=== PATIENT | male | born 1945 | race Caucasian/White ===

== ENCOUNTER 2018-09-22 14:53 | Emergency (ER) | payer OTHER ==
[~2018-09-22] VITALS: Ht 160 cm; Wt 59.0 kg
[~2018-09-22 14:53] MED LIST: METF-370 PO
[2018-09-22 15:48] LABS: Hematocrit 27.9 % (41.0-53.0)
[2018-09-22 15:51] LABS: Hemoglobin 9.3 g/dL (13.5-17.5); Mean Corpuscular Hemoglobin 32.2 pg (28.0-32.0); Mean Corpuscular Hgb Conc. 33.4 g/dL (32.0-36.0); Mean Corpuscular Volume 96.3 fL (80.0-100.0)
[2018-09-22 16:01] LABS: Red Cell Distribution Width 21.9 % (11.8-14.3)
[2018-09-22 16:02] LABS: Albumin 3.5 g/dL (3.4-5.0); Calcium 8.7 mg/dL (8.5-10.1)
[2018-09-22 16:03] LABS: Platelet Count (auto) 18 10^3/uL (140-450); White Blood Cell 0.5 10^3/uL (4.4-10.8)
[2018-09-22 16:04] LABS: Band Neutrophils % (manual) 0; Basophils % (manual) 0 (0.0-2.0); Blast Cells 0; Eosinophils % (manual) 0 (0-7); Metamyelocytes % 0; Myelocytes % 0; Promyelocytes % 0; Reactive Lymphocytes 0
[2018-09-22 16:07] LABS: BUN/Creatinine Ratio 11.8; Bilirubin, Total 0.5 mg/dL (0.2-1.0); Total Protein 7.6 g/dL (6.4-8.2)
[2018-09-22] MEDS ORDERED: LACTULOSE 20Gm/30ML SOLN PO PRN (18:15)
[2018-09-22] MEDS ORDERED: NITROGLYCERIN 0.4 MG SL TAB SL PRN (18:15)
[2018-09-22] MEDS ORDERED: TEMAZEPAM 15 MG CAP PO PRN (18:15)
[2018-09-22] MEDS ORDERED: traMADol HCL 50 MG TAB PO PRN (18:15)
[2018-09-22] MEDS ORDERED: LORazepam 0.5 MG TAB PO PRN (18:15)
[2018-09-22] MEDS ORDERED: MORPHINE SULFATE 4 MG/ML SYR/VIAL IV PRN ×2 (18:15)
[2018-09-22 19:20] LABS: Lymphocytes % (manual) 80 (10.0-50.0); Monocytes % (manual) 15 (0-12)
[2018-09-22 22:19] VITALS: BP 134/59
[2018-09-22 22:36] VITALS: BP 127/61
[2018-09-22 23:56] VITALS: BP 122/58
[2018-09-23] MEDS ORDERED: PANTOPRAZOLE 40 MG TAB PO SCH (10:00)
[2018-09-23] MEDS ORDERED: LEVOFLOXACIN 500 MG TAB PO SCH (10:00)
== END 2018-09-23 00:13 | disposition left against medical advice (07) ==
LOC: ER 14:53 → TELE 18:18 → UNDOADMIN 18:18 → ER 09-23 00:13
DX: D69.6 Thrombocytopenia, unspecified (principal); E11.9 Type 2 diabetes mellitus without complications; Z79.84 Long term (current) use of oral hypoglycemic drugs
CPT/HCPCS: 36415; 36430; 71045; 80053; 85007; 85027; 86850; 86900; 86901; 99284; J7030; P9035

== ENCOUNTER 2018-11-30 10:15 | Inpatient (IN) | payer OTHER | END 2018-12-02 14:55 | disposition home or self-care (01) | LOC: ER 10:15 → TELE 18:13 → TELE-CENTR 20:05 | DX: C92.00 Acute myeloblastic leukemia, not having achieved remission (principal); E44.0 Moderate protein-calorie malnutrition; D61.818 Other pancytopenia; G89.29 Other chronic pain; I50.9 Heart failure, unspecified; I11.0 Hypertensive heart disease with heart failure; E11.9 Type 2 diabetes mellitus without complications; Z79.84 Long term (current) use of oral hypoglycemic drugs; Z79.891 Long term (current) use of opiate analgesic ==

== ENCOUNTER 2019-02-13 18:57 | Inpatient (IN) | payer OTHER ==
[~2019-02-13] VITALS: Ht 160 cm; Wt 48.1 kg
[~2019-02-13 18:57] MED LIST changes: +ACYC-161 PO; +ALLO-52 PO; +AML5T PO; +FURO40TA4 PO; +GABA300C10 PO; +GLIP5TAB12 PO; +ISAV1CAP2 PO; +LEVO500T21 PO; +MORP1TAB12 PO; +ONDA-143 PO; +PANT40TA2 PO; +PERCOT PO; +POTA10TA51 PO; +TEMA30CA PO; +TRAM50TA2 PO; +VENE1TAB5 PO
[2019-02-13 19:46] LABS: Basophils # (auto) 0 uL; Basophils % (auto) 2.6 % (0.0-2.0); Eosinophils # (auto) 0 uL; Eosinophils % (auto) 0.1 % (0.0-7.0); Lymphocytes # (auto) 0.3 uL; Lymphocytes % (auto) 56.4 % (10.0-50.0); Monocytes # (auto) 0 uL; Monocytes % (auto) 4.8 % (0.0-12.0); Neutrophils # (auto) 0.2 uL; Neutrophils % (auto) 36.1 % (37.0-80.0); Red Blood Cells 2.29 10^6/uL (4.5-5.90)
[2019-02-13 19:47] LABS: Hematocrit 20.5 % (41.0-53.0); Mean Corpuscular Hemoglobin 30.8 pg (28.0-32.0); Mean Corpuscular Hgb Conc. 34.4 g/dL (32.0-36.0); Mean Corpuscular Volume 89.4 fL (80.0-100.0); Red Cell Distribution Width 15.7 % (11.8-14.3)
[2019-02-13 19:51] LABS: White Blood Cell 0.5 10^3/uL (4.4-10.8)
[2019-02-13 19:52] LABS: Platelet Count (auto) 17 10^3/uL (140-450)
[2019-02-13 20:16] LABS: Potassium 3.8 mmol/L (3.5-5.1); Sodium 134 mmol/L (136-145)
[2019-02-13 20:17] LABS: Alanine Aminotransferase 13 U/L (16-61); Alkaline Phosphatase 91 U/L (45-117); Anion Gap 7 (5-15); Aspartate Aminotransferase 13 U/L (15-37); BUN/Creatinine Ratio 15.8; Bilirubin, Total 0.9 mg/dL (0.2-1.0); Blood Urea Nitrogen 12 mg/dL (7-18); Calcium 8.3 mg/dL (8.5-10.1); Carbon Dioxide 28 mmol/L (21-32); Chloride 99 mmol/L (98-107); GFR African American 130 mL/min; GFR Non-African American 107 mL/min; Glucose 111 mg/dL (74-106); Total Protein 6.8 g/dL (6.4-8.2)
[2019-02-13] MEDS ORDERED: TEMAZEPAM 15 MG CAP PO PRN (22:00)
[2019-02-13] MEDS ORDERED: LORazepam 0.5 MG TAB PO PRN (22:00)
[2019-02-13] MEDS ORDERED: traMADol HCL 50 MG TAB PO PRN (22:00)
[2019-02-13] MEDS: GABAPENTIN 300 MG CAP PO SCH (22:00)
[2019-02-13] MEDS ORDERED: MORPHINE SULF INJ 2 MG/ML SYRINGE 1ML IV PRN (22:00)
[2019-02-13] MEDS ORDERED: ONDANSETRON HCL 4 MG/2 ML VIAL IV PRN (22:00)
[2019-02-13] MEDS ORDERED: IPRATROPIUM BROM 0.5 MG/2.5ML INH SOL NEB PRN (22:15)
[2019-02-13] MEDS ORDERED: ALBUTEROL SULF 2.5 MG/0.5ML(0.5%) NEB SOLN NEB PRN (22:15)
[2019-02-13] MEDS ORDERED: HYDROcodone-ACET 5/325MG TAB PO PRN (22:30)
[2019-02-13 23:04] VITALS: BP 97/47
[2019-02-13 23:11] LABS: Urine Bacteria NONE SEEN /hpf (None Seen); Urine Blood Negative /uL (Negative); Urine Mucus FEW (None Seen); Urine Specific Gravity 1.013 (1.001-1.035); Urine WBC <1 /hpf (0 - 3)
[2019-02-13 23:19] VITALS: BP 100/49
[2019-02-13 23:30] VITALS: BP 103/52
[2019-02-14] VITALS (13 sets, daily range): BP systolic 97–117; BP diastolic 49–58
--- NOTE | 2019-02-14 | NUR ---
MS admit from ER ESTEBAN ELIAS admitted to tele/MS after SBAR received. Patient oriented to Clemencia Cosme, primary RN, unit, room, bed, and unit policies regarding patient care and visiting hours. Patient weighed by bed scale and encouraged to call if they need something. All questions and concerns addressed, patient verbalized understanding.
--- NOTE | 2019-02-14 01:10 | NUR ---
FIRST UNIT OF PRBC ENDED NO S/S OF TRANSFUSION REACTION NOTED. PATIENT DENIES SYMPTOMS. VITALS STABLE, SEE TRANSFUSION RECORD.
--- NOTE | 2019-02-14 01:40 | NUR ---
FIRST UNIT OF PLATELETS STARTED SEE TRANSFUSION RECORD.
[2019-02-14] MEDS ORDERED: FURO20TA3 PO (02:00)
[2019-02-14] MEDS ORDERED: GABA300C10 PO (02:00)
[2019-02-14] MEDS ORDERED: ISAV1CAP2 PO (02:00)
[2019-02-14] MEDS ORDERED: ONDA-143 PO (02:00)
--- NOTE | 2019-02-14 03:09 | NUR ---
FIRST UNIT OF PLATELETS ENDED NO S/S OF TRANSFUSION REACTION NOTED. PATIENT DENIES SYMPTOMS. VITALS STABLE, SEE TRANSFUSION RECORD.
--- NOTE | 2019-02-14 03:17 | NUR ---
HOSPITALIST PAGED PATIENT REQUESTING HOME PAIN MEDICATION PERCOCET
--- NOTE | 2019-02-14 03:18 | NUR ---
HOSPITALIST RETURNS CALL HOSPITALIST MERNA RETURNS CALL, NEW ORDERS RECEIVED READ BACK AND VERIFIED.
[2019-02-14] MEDS ORDERED: OXYCODONE W/ ACETAMINOPHEN 5/325MG TABLET PO PRN (03:30)
--- NOTE | 2019-02-14 04:05 | NUR ---
PATIENT STATES HE DOES NOT HAVE AN ALLERGY TO NORCO(HYDROCODONE), PATIENT STATES HE TOOK IT AND IT CAUSED NAUSEA. PATIENT STATES HE HAS NAUSEA WHEN HE TAKES NORCO AND MORPHINE. HE DENIES REACTION TO PERCOCET AND STATES IT DOES NOT CAUSE HIM NAUSEA LIKE THE NORCO AND MORPHINE. REMOVED HYDROCODONE ALLERGY FROM PATIENTS CHART PER REQUEST.
--- NOTE | 2019-02-14 04:37 | NUR ---
SECOND UNIT OF PRBC'S STARTED SEE TRANSFUSION RECORD.
--- NOTE | 2019-02-14 06:14 | NUR ---
Respiratory note: PT AWAKE AND ALERT. NO RESPIRATORY DISTRESS NOTED. SPO2 94% RA, HR 101, RR 18, BS CLEAR T/O. PRN TX NOT INDICATED AT THIS TIME. INFORMED PT TO PUSH CALL BUTTON IF INCREASED WOB, SOB, OR WHEEZING OCCURS.
--- NOTE | 2019-02-14 06:40 | NUR ---
SECOND UNIT OF PRBC ENDED NO S/S OF TRANSFUSION REACTION NOTED. PATIENT DENIES SYMPTOMS. VITALS STABLE, SEE TRANSFUSION RECORD.
[2019-02-14] MEDS: GABAPENTIN 300 MG CAP PO SCH ×2 (06:41→14:23)
[2019-02-14] MEDS ORDERED: glipiZIDE 5 MG TAB PO SCH (07:00)
[2019-02-14] MEDS ORDERED: FUROSEMIDE 20 MG TAB PO SCH (10:00)
[2019-02-14] MEDS ORDERED: ACYCLOVIR 400 MG TAB PO SCH (10:00)
[2019-02-14] MEDS ORDERED: PANTOPRAZOLE 40 MG TAB PO SCH (10:00)
[2019-02-14] MEDS ORDERED: LEVOFLOXACIN 500 MG TAB PO SCH (10:00)
[2019-02-14] MEDS ORDERED: amLODIPine BESYLATE 5 MG TAB PO SCH (10:00)
[2019-02-14] MEDS ORDERED: CRESEMBA 186 MG PO SCH (10:00)
[2019-02-14 10:46] LABS: Hemoglobin 10.2 g/dL (13.5-17.5); Red Cell Distribution Width 15.3 % (11.8-14.3)
[2019-02-14 10:48] LABS: Hematocrit 29.4 % (41.0-53.0); Mean Corpuscular Hemoglobin 31.2 pg (28.0-32.0); Mean Corpuscular Hgb Conc. 34.7 g/dL (32.0-36.0); Mean Corpuscular Volume 89.9 fL (80.0-100.0); Platelet Count (auto) 49 10^3/uL (140-450); Red Blood Cells 3.27 10^6/uL (4.5-5.90)
[2019-02-14] MEDS ORDERED: DEXTROSE (50%) 50ML SYRG IV PRN (11:15)
[2019-02-14 11:30] LABS: White Blood Cell 0.4 10^3/uL (4.4-10.8)
[2019-02-14] MEDS ORDERED: ACCU-CHEK COMFORT CURVE STRIP VI SCH (11:30)
[2019-02-14] MEDS ORDERED: InsuLIN REG 1unit/0.01ml Soln (100units/ml) SC SCH (11:30)
[2019-02-14 11:31] LABS: Band Neutrophils % (manual) 0; Basophils % (manual) 0 (0.0-2.0); Blast Cells 0; Metamyelocytes % 0; Myelocytes % 0; Promyelocytes % 0; Reactive Lymphocytes 0
[2019-02-14 15:04] LABS: Eosinophils % (manual) 1 (0-7); Lymphocytes % (manual) 64 (10.0-50.0); Monocytes % (manual) 9 (0-12)
--- NOTE | 2019-02-14 15:12 | NUR ---
Discharge instructions given as ordered. Encourage to follow up with PMD as instructed. All questions and concerns addressed. Patient verbalized understanding. Medication reconciliation form completed and copy given to patient. IV removed with catheter intact, pressure dressing applied . Patient taken to [facility] via wheelchair with all personal belongings, accompanied by staff member. No distress noted at time of departure.
== END 2019-02-14 15:15 | disposition home or self-care (01) | DRG 949 ==
LOC: EDBD 18:57 → EDUNIT# 18:57 → ER 19:00 → OVERFLOW 19:01 → CENTRAL 23:45
PROVIDERS: ADMIT Nurse Practitioner Family; ATTEND Internal Medicine
PROC: 30233N1 Transfusion of Nonautologous Red Blood Cells into Peripheral Vein, Percutaneous Approach (ICD-10-PCS; 2019-02-13)
PROC: 30233R1 Transfusion of Nonautologous Platelets into Peripheral Vein, Percutaneous Approach (ICD-10-PCS; principal; 2019-02-14)
DX: Z92.21 Personal history of antineoplastic chemotherapy (principal); D61.818 Other pancytopenia; C92.00 Acute myeloblastic leukemia, not having achieved remission; I50.32 Chronic diastolic (congestive) heart failure; E11.9 Type 2 diabetes mellitus without complications; I11.0 Hypertensive heart disease with heart failure; G89.29 Other chronic pain; J44.9 Chronic obstructive pulmonary disease, unspecified; K21.9 Gastro-esophageal reflux disease without esophagitis; M54.5 Low back pain; Z81.8 Family history of other mental and behavioral disorders; Z82.5 Family history of asthma and other chronic lower respiratory diseases; Z80.8 Family history of malignant neoplasm of other organs or systems; Z79.84 Long term (current) use of oral hypoglycemic drugs; Z79.899 Other long term (current) drug therapy; Z80.0 Family history of malignant neoplasm of digestive organs; Z90.89 Acquired absence of other organs
CPT/HCPCS: 36415; 36430; 71045; 80053; 81001; 82962; 85007; 85025; 85027; 86850; 86900; 86901; 86920; 87081; 94640; G0378

== ENCOUNTER 2019-03-13 21:48 | Emergency (ER) | payer OTHER ==
[~2019-03-13] VITALS: Ht 160 cm; Wt 45.4 kg
[~2019-03-13 21:48] MED LIST changes: +FURO20TA3 PO; -FURO40TA4 PO; -METF-370 PO; -MORP1TAB12 PO; -VENE1TAB5 PO
[2019-03-13 22:47] LABS: Basophils # (auto) 0 uL; Eosinophils # (auto) 0 uL; Monocytes # (auto) 0 uL
[2019-03-13 22:49] LABS: Basophils % (auto) 0.5 % (0.0-2.0); Eosinophils % (auto) 0.7 % (0.0-7.0); Hematocrit 16.7 % (41.0-53.0); Lymphocytes # (auto) 0.4 uL; Lymphocytes % (auto) 54.2 % (10.0-50.0); Mean Corpuscular Hemoglobin 31.4 pg (28.0-32.0); Mean Corpuscular Hgb Conc. 34.4 g/dL (32.0-36.0); Mean Corpuscular Volume 91.5 fL (80.0-100.0); Monocytes % (auto) 5.2 % (0.0-12.0); Neutrophils # (auto) 0.3 uL; Neutrophils % (auto) 39.4 % (37.0-80.0); Red Blood Cells 1.83 10^6/uL (4.5-5.90); Red Cell Distribution Width 17.8 % (11.8-14.3)
[2019-03-13 22:50] LABS: Alanine Aminotransferase 12 U/L (16-61); Albumin 2.7 g/dL (3.4-5.0); Anion Gap 7 (5-15); Aspartate Aminotransferase 11 U/L (15-37); BUN/Creatinine Ratio 13.7; Blood Urea Nitrogen 10 mg/dL (7-18); Calcium 8.1 mg/dL (8.5-10.1); Carbon Dioxide 30 mmol/L (21-32); Chloride 98 mmol/L (98-107); GFR African American 136 mL/min; GFR Non-African American 113 mL/min; Glucose 111 mg/dL (74-106); Magnesium 2.2 mg/dL (1.6-2.6); Potassium 4.1 mmol/L (3.5-5.1); Sodium 135 mmol/L (136-145)
[2019-03-13 22:52] LABS: Nucleated Red Blood Cells % 24.4 %
[2019-03-13 22:55] LABS: Alkaline Phosphatase 75 U/L (45-117); Bilirubin, Total 0.7 mg/dL (0.2-1.0)
[2019-03-13 22:58] LABS: INR 1.06 (0.9-1.15); Partial Thromboplastin Time 33.3 sec (23.64-32.05); Platelet Count (auto) 19 10^3/uL (140-450)
[2019-03-13 22:59] LABS: Hemoglobin 5.7 g/dL (13.5-17.5); White Blood Cell 0.8 10^3/uL (4.4-10.8)
[2019-03-13 23:21] LABS: Urine Bacteria FEW /hpf (None Seen); Urine Blood Negative /uL (Negative); Urine Hyaline Cast FEW /lpf (0 - 2); Urine Mucus FEW (None Seen); Urine Specific Gravity 1.009 (1.001-1.035); Urine WBC <1 /hpf (0 - 3)
[2019-03-14 02:15] VITALS: BP 98/49
[2019-03-14 02:30] VITALS: BP 99/48
[2019-03-14 03:00] VITALS: BP 106/50
[2019-03-14] MEDS ORDERED: OXYCODONE W/ ACETAMINOPHEN 5/325MG TABLET PO ONE (03:15)
[2019-03-14] MEDS ORDERED: traMADol HCL 50 MG TAB PO PRN (09:00)
[2019-03-14] MEDS ORDERED: ONDANSETRON HCL 4 MG/2 ML VIAL IV PRN (09:00)
[2019-03-14] MEDS ORDERED: HYDROcodone-ACET 5/325MG TAB PO PRN (09:00)
[2019-03-14] MEDS ORDERED: ACETAMINOPHEN 500 MG TAB PO PRN (09:00)
[2019-03-14] MEDS ORDERED: MORPHINE SULF INJ 2 MG/ML SYRINGE 1ML IV PRN ×2 (09:00)
[2019-03-14] MEDS ORDERED: NITROGLYCERIN 0.4 MG SL TAB SL PRN (09:00)
[2019-03-14 09:23] VITALS: BP 98/45
[2019-03-14 09:35] LABS: Basophils # (auto) 0 uL; Eosinophils # (auto) 0 uL; Lymphocytes # (auto) 0.4 uL; Mean Corpuscular Hemoglobin 30.8 pg (28.0-32.0); Mean Corpuscular Volume 88.9 fL (80.0-100.0); Monocytes # (auto) 0 uL
[2019-03-14 09:37] LABS: Basophils % (auto) 2.2 % (0.0-2.0); Eosinophils % (auto) 3.8 % (0.0-7.0); Hemoglobin 10.4 g/dL (13.5-17.5); Lymphocytes % (auto) 53.8 % (10.0-50.0); Mean Corpuscular Hgb Conc. 34.6 g/dL (32.0-36.0); Monocytes % (auto) 3.1 % (0.0-12.0); Neutrophils # (auto) 0.3 uL; Neutrophils % (auto) 37.1 % (37.0-80.0); Platelet Count (auto) 63 10^3/uL (140-450); Red Blood Cells 3.38 10^6/uL (4.5-5.90); Red Cell Distribution Width 17.8 % (11.8-14.3)
[2019-03-14 09:57] LABS: Nucleated Red Blood Cells % 20.8 %
[2019-03-14 09:59] LABS: White Blood Cell 0.8 10^3/uL (4.4-10.8)
[2019-03-14] MEDS ORDERED: PANTOPRAZOLE 40 MG TAB PO SCH (10:00)
[2019-03-14] MEDS ORDERED: amLODIPine BESYLATE 5 MG TAB PO SCH (10:00)
[2019-03-14] MEDS ORDERED: ALLOPURINOL 300 MG TAB PO SCH (10:00)
[2019-03-14] MEDS ORDERED: FUROSEMIDE 20 MG TAB PO SCH (10:00)
[2019-03-14] MEDS ORDERED: GABAPENTIN 300 MG CAP PO SCH (22:00)
== END 2019-03-14 09:41 | disposition home or self-care (01) ==
LOC: ER 21:49
DX: D64.81 Anemia due to antineoplastic chemotherapy (principal); D69.6 Thrombocytopenia, unspecified; D72.819 Decreased white blood cell count, unspecified; T45.1X5A Adverse effect of antineoplastic and immunosuppressive drugs, initial encounter; E11.9 Type 2 diabetes mellitus without complications; I11.0 Hypertensive heart disease with heart failure; I50.9 Heart failure, unspecified; Z79.84 Long term (current) use of oral hypoglycemic drugs; Z79.899 Other long term (current) drug therapy; Y92.89 Other specified places as the place of occurrence of the external cause
CPT/HCPCS: 36415; 36430; 80053; 81001; 83735; 84484; 85025; 85610; 85730; 86850; 86900; 86901; 86920; 93005; 99285; P9016; P9035

== ENCOUNTER 2019-03-29 15:29 | Inpatient (IN) | payer OTHER | END 2019-03-31 14:30 | disposition home or self-care (01) | LOC: EAST 23:32 → ER 15:29 → OVERFLOW 15:30 → EAST 23:22 | DX: C92.00 Acute myeloblastic leukemia, not having achieved remission (principal); E43 Unspecified severe protein-calorie malnutrition; D61.818 Other pancytopenia; R64 Cachexia; I10 Essential (primary) hypertension; I70.0 Atherosclerosis of aorta; Z92.21 Personal history of antineoplastic chemotherapy; D69.6 Thrombocytopenia, unspecified; E11.8 Type 2 diabetes mellitus with unspecified complications ==

== ENCOUNTER 2019-04-28 11:16 | Inpatient (IN) | payer OTHER ==
[~2019-04-28] VITALS: Ht 172.7 cm; Wt 50.0 kg
[~2019-04-28 11:16] MED LIST changes: -LEVO500T21 PO; -POTA10TA51 PO
[2019-04-28] MEDS ORDERED: SODIUM CHLORIDE 0.9% 1,000 ML IV ONE (11:44)
[2019-04-28 12:45] LABS: Basophils # (auto) 0 uL; Eosinophils # (auto) 0 uL; Lymphocytes # (auto) 0.2 uL; Monocytes # (auto) 0 uL; Neutrophils # (auto) 0.1 uL
[2019-04-28 12:50] LABS: Eosinophils % (auto) 0.6 % (0.0-7.0); Lymphocytes % (auto) 54.8 % (10.0-50.0); Mean Corpuscular Hgb Conc. 32.9 g/dL (32.0-36.0); Mean Corpuscular Volume 94.3 fL (80.0-100.0); Monocytes % (auto) 11.9 % (0.0-12.0); Neutrophils % (auto) 32.7 % (37.0-80.0); Red Blood Cells 2.01 10^6/uL (4.5-5.90)
[2019-04-28 13:03] LABS: Nucleated Red Blood Cells % 29.5 %
[2019-04-28 13:04] LABS: Hemoglobin 6.2 g/dL (13.5-17.5); Platelet Count (auto) 18 10^3/uL (140-450); Red Cell Distribution Width 25.4 % (11.8-14.3); White Blood Cell 0.3 10^3/uL (4.4-10.8)
[2019-04-28 13:06] LABS: INR 1.11 (0.9-1.15); Partial Thromboplastin Time 35.3 sec (23.64-32.05)
[2019-04-28 13:11] LABS: Albumin 2.7 g/dL (3.4-5.0); Anion Gap 9 (5-15); Aspartate Aminotransferase 25 U/L (15-37); BUN/Creatinine Ratio 28.3; Blood Urea Nitrogen 17 mg/dL (7-18); Calcium 8.4 mg/dL (8.5-10.1); Carbon Dioxide 28 mmol/L (21-32); Chloride 98 mmol/L (98-107); GFR African American 171 mL/min; GFR Non-African American 141 mL/min; Glucose 113 mg/dL (74-106); Potassium 3.8 mmol/L (3.5-5.1); Sodium 135 mmol/L (136-145)
[2019-04-28 13:16] LABS: Alanine Aminotransferase 21 U/L (16-61); Alkaline Phosphatase 69 U/L (45-117); Bilirubin, Total 1.2 mg/dL (0.2-1.0); Total Protein 6.4 g/dL (6.4-8.2)
[2019-04-28] MEDS ORDERED: DEXTROSE (50%) 50ML SYRG IV PRN (13:30)
[2019-04-28] MEDS ORDERED: NITROGLYCERIN 0.4 MG SL TAB SL PRN (13:30)
[2019-04-28] MEDS ORDERED: MORPHINE SULF INJ 2 MG/ML SYRINGE 1ML IV PRN (13:30)
[2019-04-28] MEDS ORDERED: PROMETHAZINE HCL 25 MG/ML 1ML IV PRN (13:30)
[2019-04-28] MEDS ORDERED: LACTULOSE 20Gm/30ML SOLN PO PRN (13:30)
[2019-04-28] MEDS ORDERED: ACETAMINOPHEN 500 MG TAB PO PRN (13:30)
[2019-04-28] MEDS ORDERED: traMADol HCL 50 MG TAB PO PRN (13:30)
[2019-04-28] MEDS ORDERED: TEMAZEPAM 15 MG CAP PO PRN (13:30)
[2019-04-28] MEDS: SODIUM CHLORIDE 0.9% 1,000 ML IV SCH (13:53)
--- NOTE | 2019-04-28 14:00 | NUR ---
PT TRANSPORTED FROM ER. RECEIVED REPORT FROM ER NURSE. PT AWAKE AND ALERT. PT RUNNING PLATELETS AT 120 ML PER HOUR. NO SOB OR SIGNS OF DISTRESS NOTED. INSTRUCTED PT ON POC. BED AT LOWEST POSITION. SIDE RAILS UP X2. WILL CONTINUE TO MONITOR.
[2019-04-28 14:59] VITALS: BP 104/51
[2019-04-28 15:17] VITALS: BP 108/52
[2019-04-28 16:26] VITALS: BP 117/56
--- NOTE | 2019-04-28 19:30 | NUR ---
Opening Shift Note Assumed care of patient, awake and alert. Henderson sandwich, jello and juice at bedside. PICC line to PATITO double lumen patent and infusing platelets. Verbalized being upset this week over his sister passing away. Using urinal. Jaymie colored urine. Continues to feel weak. Verbalized he would call if he wanted to get up for any reason. No S/S of distress/SOB. Instructed on POC and to call for assist PRN, will continue to monitor for changes Q1hr and PRN. Bed low and call light within reach.
--- NOTE | 2019-04-28 21:45 | NUR ---
Started blood transfusion @ 60 mls/hr. Closely monitoring for any adverse reactions. Vitals stable, afebrile. Infusion running through NADINE PIC line.
[2019-04-28 21:51] VITALS: BP 106/46
--- NOTE | 2019-04-28 21:57 | NUR ---
Paged hospitalist: Patient here for generalized weakness, receiving blood transfusion at this time. Also on chemo for leukemia. Patient takes percocet q6 for pain. Only has tramadol ordered at this time. He is also a type II diabetic on glipizide at home with no accuchecks ordered.
[2019-04-28 22:05] VITALS: BP 101/51
--- NOTE | 2019-04-28 22:30 | NUR ---
Paged hospitalist again. Patient pain 8/10 to back mainly. Requesting his percocet that he takes at home.Awaiting return call/orders
[2019-04-28 23:45] VITALS: BP 107/51
[2019-04-28] MEDS: OXYCODONE W/ ACETAMINOPHEN 5/325MG TABLET PO PRN (23:53)
[2019-04-29] VITALS (11 sets, daily range): BP systolic 100–115; BP diastolic 51–64
[2019-04-29 00:36] LABS: Urine Bacteria NONE SEEN /hpf (None Seen); Urine Blood Negative /uL (Negative); Urine Specific Gravity 1.018 (1.001-1.035); Urine WBC 1 /hpf (0 - 3)
[2019-04-29] MEDS: SODIUM CHLORIDE 0.9% 1,000 ML IV SCH ×2 (01:59→15:24)
--- NOTE | 2019-04-29 04:35 | NUR ---
PRBC's #2 finished. No adverse reactions noted. Flushed PICC line with 10 mls NS. Vitals stable. Fluids infusing per orders. Patient resting at this time. Call light within reach
[2019-04-29] MEDS: OXYCODONE W/ ACETAMINOPHEN 5/325MG TABLET PO PRN ×3 (06:59→21:21)
[2019-04-29 07:11] LABS: Hematocrit 21.6 % (41.0-53.0); Hemoglobin 7.4 g/dL (13.5-17.5); Mean Corpuscular Hemoglobin 30.4 pg (28.0-32.0); Mean Corpuscular Hgb Conc. 34.2 g/dL (32.0-36.0); Mean Corpuscular Volume 88.8 fL (80.0-100.0); Platelet Count (auto) 38 10^3/uL (140-450); Red Blood Cells 2.43 10^6/uL (4.5-5.90)
[2019-04-29 07:24] LABS: Red Cell Distribution Width 21.8 % (11.8-14.3)
[2019-04-29] MEDS: glipiZIDE 5 MG TAB PO SCH (07:29)
[2019-04-29 07:34] LABS: White Blood Cell 0.3 10^3/uL (4.4-10.8)
[2019-04-29 07:35] LABS: Basophils % (manual) 0 (0.0-2.0); Blast Cells 0; Eosinophils % (manual) 0 (0-7); Metamyelocytes % 0; Myelocytes % 0; Promyelocytes % 0; Reactive Lymphocytes 0
[2019-04-29 08:18] LABS: Lymphocytes % (manual) 56 (10.0-50.0); Monocytes % (manual) 13 (0-12)
[2019-04-29 08:33] LABS: Band Neutrophils % (manual) 0
[2019-04-29] MEDS: PANTOPRAZOLE 40 MG TAB PO SCH (10:02)
[2019-04-29] MEDS ORDERED: cefTRIAXone 1GM/50ML D5W 50 ML IV ONE (12:00)
[2019-04-29] MEDS ORDERED: VANCOMYCIN PER PHARMACY 0 MG IV SCH (12:00)
[2019-04-29] MEDS ORDERED: VANCOMYCIN 1GM/250ML 250 ML IV ONE (13:00)
--- NOTE | 2019-04-29 20:00 | NUR ---
Opening Shift Note Assumed care of patient, awake and alert x4. No S/S of distress/SOB or pain. Instructed on POC and to call for assistance PRN, will continue to monitor for changes Q1hr and PRN. Patient on reverse iso
--- NOTE | 2019-04-29 22:21 | NUR ---
Pain Management Pt medicated for chronic back pain 02/01, will monitor for relief
[2019-04-30 05:00] VITALS: BP 119/71
[2019-04-30] MEDS: OXYCODONE W/ ACETAMINOPHEN 5/325MG TABLET PO PRN ×3 (06:34→18:12)
[2019-04-30] MEDS: glipiZIDE 5 MG TAB PO SCH (06:37)
--- NOTE | 2019-04-30 06:40 | NUR ---
Pain Management Pt medicated for chronic back pain. IV fluids running NS at 80 ml/hr, per pt lab to return to deliver supplies for am labs
[2019-04-30] MEDS: SODIUM CHLORIDE 0.9% 1,000 ML IV SCH ×2 (06:42→16:54)
--- NOTE | 2019-04-30 07:10 | NUR ---
Endorsed care to Geovanna GANNON
--- NOTE | 2019-04-30 07:30 | NUR ---
Opening Shift Note Assumed care of patient, awake and alert. No S/S of distress/SOB or pain on 2 LPM via nasal cannula. Instructed on POC and to call for assist PRN, will continue to monitor for changes Q1hr and PRN. Bed in low and locked position, rails up x2, no-slip socks on. Reverse isolation precautions in place.
[2019-04-30 08:20] LABS: Basophils # (auto) 0 uL; Eosinophils # (auto) 0 uL; Hemoglobin 7.9 g/dL (13.5-17.5); Neutrophils # (auto) 0.1 uL
[2019-04-30 08:21] LABS: Eosinophils % (auto) 3.8 % (0.0-7.0); Hematocrit 23.5 % (41.0-53.0); Lymphocytes # (auto) 0.3 uL; Mean Corpuscular Hemoglobin 29.7 pg (28.0-32.0); Mean Corpuscular Hgb Conc. 33.6 g/dL (32.0-36.0); Mean Corpuscular Volume 88.2 fL (80.0-100.0); Monocytes # (auto) 0 uL; Monocytes % (auto) 11.8 % (0.0-12.0); Neutrophils % (auto) 16.8 % (37.0-80.0); Platelet Count (auto) 22 10^3/uL (140-450); Red Blood Cells 2.66 10^6/uL (4.5-5.90)
[2019-04-30 08:24] LABS: Nucleated Red Blood Cells % 36.1 %; Red Cell Distribution Width 21.9 % (11.8-14.3)
[2019-04-30 08:28] LABS: Lymphocytes % (auto) 67.6 % (10.0-50.0); White Blood Cell 0.4 10^3/uL (4.4-10.8)
--- NOTE | 2019-04-30 08:28 | NUR ---
CRITICAL LAB SPOKE TO DARRION, PATIENT WBC 0.4 AND PLATELETS 22, WILL NOTIFY MD OF RESULTS.
[2019-04-30 08:41] LABS: Albumin 2.2 g/dL (3.4-5.0); Calcium 7.9 mg/dL (8.5-10.1); Potassium 3.5 mmol/L (3.5-5.1)
[2019-04-30 08:45] LABS: BUN/Creatinine Ratio 23.1; Bilirubin, Total 0.8 mg/dL (0.2-1.0); Total Protein 5.4 g/dL (6.4-8.2)
[2019-04-30 08:48] VITALS: BP 113/68
--- NOTE | 2019-04-30 09:00 | NUR ---
DR Clarice QUIÑONES AT BEDSIDE NO NEW ORDERS, AWAITING DR SANCHEZ CONSULT, HGB STABLE TODAY, WILL CONTINUE TO MONITOR. PATIENT STATED HE USES [facility].
[2019-04-30] MEDS: PANTOPRAZOLE 40 MG TAB PO SCH (09:33)
[2019-04-30] MEDS: cefTRIAXone 1GM/50ML D5W 50 ML IV SCH (09:33)
[2019-04-30] MEDS: VANCOMYCIN 1GM/250ML 250 ML IV SCH (12:31)
[2019-04-30 13:00] VITALS: BP 113/60
[2019-04-30 16:55] VITALS: BP 111/58
--- NOTE | 2019-04-30 18:14 | NUR ---
DR LAURA LEWIS STATED HE SAW THE PATIENT ON WEDNESDAY OR WEDNESDAY AND THAT THE CONSULT SHOULD HAVE BEEN CANCELLED, HE WAS UNDER THE IMPRESSION THAT THE PATIENT WOULD BE GETTING A BLOOD TRANSFUSION THEN DISCHARGED, INFORMED OF POSITIVE BLOOD CULTURES REQUIRING IV ANTIBIOTICS, ABHISHEK, STATED THAT THERE IS NOTHING TO BE DONE FROM A HEMATOLOGY, ONCOLOGY STANDPOINT AND CONTINUE THE IV ANTIBIOTICS NEEDED.
[2019-04-30 22:19] VITALS: BP 115/49
[2019-05-01] VITALS (13 sets, daily range): BP systolic 102–130; BP diastolic 52–66
[2019-05-01] MEDS: OXYCODONE W/ ACETAMINOPHEN 5/325MG TABLET PO PRN ×4 (00:30→19:03)
[2019-05-01] MEDS: SODIUM CHLORIDE 0.9% 1,000 ML IV SCH ×2 (04:28→18:51)
[2019-05-01] MEDS: glipiZIDE 5 MG TAB PO SCH (06:57)
[2019-05-01 07:13] LABS: Basophils # (auto) 0 uL; Eosinophils # (auto) 0 uL; Hemoglobin 7.7 g/dL (13.5-17.5); Mean Corpuscular Volume 88.4 fL (80.0-100.0); Monocytes # (auto) 0 uL; Neutrophils # (auto) 0.1 uL
[2019-05-01 07:14] LABS: Eosinophils % (auto) 2.2 % (0.0-7.0); Lymphocytes # (auto) 0.2 uL; Mean Corpuscular Hemoglobin 29.7 pg (28.0-32.0); Mean Corpuscular Hgb Conc. 33.6 g/dL (32.0-36.0); Monocytes % (auto) 9.1 % (0.0-12.0)
[2019-05-01 07:18] LABS: Lymphocytes % (auto) 58.7 % (10.0-50.0); Nucleated Red Blood Cells % 26.4 %; Red Cell Distribution Width 22.9 % (11.8-14.3)
[2019-05-01 07:20] LABS: Platelet Count (auto) 19 10^3/uL (140-450); White Blood Cell 0.4 10^3/uL (4.4-10.8)
[2019-05-01 07:24] LABS: Albumin 2.2 g/dL (3.4-5.0); BUN/Creatinine Ratio 15.8; Calcium 7.8 mg/dL (8.5-10.1); Potassium 3.3 mmol/L (3.5-5.1)
--- NOTE | 2019-05-01 07:25 | NUR ---
Critical Lab WBC at 0.4 and Platelet at 19. Will endorse to day shift RN.
[2019-05-01 07:26] LABS: Bilirubin, Total 0.6 mg/dL (0.2-1.0); Total Protein 5.4 g/dL (6.4-8.2)
--- NOTE | 2019-05-01 07:30 | NUR ---
Open Shift Note Received report on patient, awake and sitting on side of bed. Patient shows no signs of distress at this time. Discussed POC with patient, patient verbalized understanding. Bed in lowest locked position, side rails up x2 and call light within reach. Will continue to monitor.
[2019-05-01] MEDS: cefTRIAXone 1GM/50ML D5W 50 ML IV SCH (08:58)
[2019-05-01] MEDS ORDERED: IOHEXOL 300 MG/ML 100ML BOTTLE IJ ONE (09:50)
[2019-05-01] MEDS ORDERED: OMNIPAQUE ORAL SOLN 500ml 12mg/ml PO ONE (09:50)
[2019-05-01] MEDS ORDERED: POTASSIUM CHL 20 Meq TABLET PO ONE (10:45)
[2019-05-01] MEDS: VANCOMYCIN 1GM/250ML 250 ML IV SCH (10:53)
[2019-05-01] MEDS: PANTOPRAZOLE 40 MG TAB PO SCH (10:54)
--- NOTE | 2019-05-01 12:33 | NUR ---
Platelets To Be Delivered Later Today Spoke with blood bank who stated the platelets will not be delivered until later today because they have to bring them from [facility]. Verbalized understanding.
--- NOTE | 2019-05-01 14:46 | NUR ---
NUTRITION ASSESSMENT NOTES Please refer to link notes of nutrition screen form filed under the intervention section of the plan of care for further details. Est. Needs based on IBW (70 kg): 1750 kcal to 2250 kcal (25-30 kcal/kgIBW), 70 gms to 98 gms pro (1.0-1.4 gms/kgBW d/t severe hypoalbuminemia). Will continue to monitor pertinent labs and reassess nutrient need prn Thank you. Addendum: 05/01/19 at [address] Amended: Links added.
--- NOTE | 2019-05-01 18:51 | NUR ---
Closing Note Patient sitting up in bed, receiving platelet transfusion. Shows no signs of distress at this time. Bed in lowest locked position, side rails up x2 and call light within reach.
--- NOTE | 2019-05-01 19:18 | NUR ---
Opening Shift Note Assumed care of patient, awake and alert. Patient currently receiving Platelet transfusion. Vital signs WNL. No S/S of distress/SOB or pain or any adverse reaction. Instructed on POC and to call for assist PRN, will continue to monitor for changes Q1hr and PRN. Side rails up x2. Bed locked in locked in lowest position. Call light within reach.
--- NOTE | 2019-05-01 22:46 | NUR ---
Platelet transfusion finished. No adverse reaction noted. Vital signs within normal limits (see vital signs tab).
[2019-05-02] MEDS: OXYCODONE W/ ACETAMINOPHEN 5/325MG TABLET PO PRN ×4 (02:03→21:01)
[2019-05-02 05:12] VITALS: BP 126/52
--- NOTE | 2019-05-02 06:16 | NUR ---
PICC line dressing changed with sterile technique. Changed and flushed ports. Patient tolerated well.
[2019-05-02] MEDS: glipiZIDE 5 MG TAB PO SCH (06:48)
[2019-05-02] MEDS: SODIUM CHLORIDE 0.9% 1,000 ML IV SCH ×2 (06:48→22:31)
[2019-05-02 07:05] LABS: Basophils # (auto) 0 uL; Eosinophils # (auto) 0 uL; Hemoglobin 8.5 g/dL (13.5-17.5); Mean Corpuscular Hemoglobin 29.7 pg (28.0-32.0); Mean Corpuscular Volume 87.8 fL (80.0-100.0); Neutrophils # (auto) 0.1 uL; Red Blood Cells 2.85 10^6/uL (4.5-5.90)
[2019-05-02 07:07] LABS: Eosinophils % (auto) 1.3 % (0.0-7.0); Lymphocytes # (auto) 0.3 uL; Mean Corpuscular Hgb Conc. 33.8 g/dL (32.0-36.0); Monocytes # (auto) 0 uL; Monocytes % (auto) 9.2 % (0.0-12.0); Platelet Count (auto) 36 10^3/uL (140-450)
[2019-05-02 07:18] LABS: Lymphocytes % (auto) 69.5 % (10.0-50.0); Nucleated Red Blood Cells % 14.2 %; Red Cell Distribution Width 20.7 % (11.8-14.3)
[2019-05-02 07:19] LABS: White Blood Cell 0.5 10^3/uL (4.4-10.8)
--- NOTE | 2019-05-02 07:25 | NUR ---
Endorsed care to day shift RN.
--- NOTE | 2019-05-02 07:25 | NUR ---
Open Shift Note Received report on patient, awake and lying in bed. Patient shows no signs of distress at this time. Discussed POC with patient. Bed in lowest locked position, side rails up x2 and call light within reach. Will continue to monitor.
[2019-05-02 07:26] LABS: Potassium 3.6 mmol/L (3.5-5.1)
[2019-05-02 07:29] LABS: Albumin 2.2 g/dL (3.4-5.0); BUN/Creatinine Ratio 13.5; Bilirubin, Total 0.5 mg/dL (0.2-1.0); Total Protein 5.4 g/dL (6.4-8.2)
[2019-05-02] MEDS: cefTRIAXone 1GM/50ML D5W 50 ML IV SCH (08:35)
[2019-05-02 09:00] VITALS: BP 124/67
[2019-05-02] MEDS: VANCOMYCIN 1GM/250ML 250 ML IV SCH (09:58)
[2019-05-02] MEDS: PANTOPRAZOLE 40 MG TAB PO SCH (09:58)
[2019-05-02 13:00] VITALS: BP 126/66
--- NOTE | 2019-05-02 14:37 | NUR ---
assessment re: britt consult for living situation Patient is a 73 year old male who is alert and oriented. Patients cognitive abilities are intact. Prior to admission patient lived home with family and functioned independently. Patient informed me he is able to care for his own ADLs. Per patient he will return home to his prior living arrangements post discharge and family will transport him home. Patient informed me he has a fww, but does not need to use it. Patient informed me he is on service with [facility] for blood draws and pic line care. Patient feels safe returning home on discharge. Patient will need to resume with [facility] on discharge. I informed patient he has a right to speak to a social science professor regarding all care. I informed patient he has a right to participate in any and all discharge planning. Patient has a POA and advanced directive. Patient verbalized understanding and agreed to discharge plan. Addendum: 05/02/19 at 1453 by Terrie ALEJANDRO Amended: Links added.
[2019-05-02 17:00] VITALS: BP 126/67
--- NOTE | 2019-05-02 19:29 | NUR ---
Closing Note Patient shows no signs of distress at this time. Endorsed care to NOC nurse.
[2019-05-02 22:00] VITALS: BP 131/67
[2019-05-02] MEDS: VANCOMYCIN 750mg/250ml 250 ML IV SCH (22:31)
[2019-05-03] MEDS: OXYCODONE W/ ACETAMINOPHEN 5/325MG TABLET PO PRN ×2 (03:52→10:33)
[2019-05-03 05:00] VITALS: BP 131/61
[2019-05-03] MEDS: SODIUM CHLORIDE 0.9% 1,000 ML IV SCH (05:59)
[2019-05-03] MEDS: glipiZIDE 5 MG TAB PO SCH (07:00)
[2019-05-03 09:00] VITALS: BP 136/69
[2019-05-03] MEDS: PANTOPRAZOLE 40 MG TAB PO SCH (09:00)
[2019-05-03] MEDS: cefTRIAXone 1GM/50ML D5W 50 ML IV SCH (09:00)
[2019-05-03] MEDS: VANCOMYCIN 750mg/250ml 250 ML IV SCH (10:45)
[2019-05-03 13:00] VITALS: BP 141/72
--- NOTE | 2019-05-03 13:43 | NUR ---
called Mary ANGULO for [facility] and had to leave message requesting [facility]
--- NOTE | 2019-05-03 14:20 | NUR ---
Discharge instructions given as ordered. Encourage to follow up with PMD as instructed. All questions and concerns addressed. Patient verbalized understanding. Medication reconciliation form completed and copy given to patient. PICC LINE LEFT INTACT. Telemetry unit returned to ICU. Patient taken to vehicle via wheelchair with all personal belongings, accompanied by staff and family member. No distress noted at time of departure.
--- NOTE | 2019-05-03 15:30 | NUR ---
Mary from [facility] state pt had auth for HH from [phone] to 12 [phone] 19 so auth is there. If for some problem [facility] wants new auth, then [facility] will need to call customer services per Mary
--- NOTE | 2019-05-03 16:10 | NUR ---
Discharge planning per consult, patient has orders to resume home health services with [facility] for PICC line care and weekly dressing changes and weekly blood draws. Referral was sent. Placed a follow up call, spoke with Zach (coordinator working on this case) and was advised that they will resume services with this patient and start of care will be tomorrow 05.04.19. Addendum: 05/03/19 at 1614 by ANGELES PUCKETT Amended: Links added.
== END 2019-05-03 14:10 | disposition home health service (06) | DRG 871 ==
LOC: EDBD 11:16 → ER 11:16 → EDUNIT# 11:16 → TELE 11:17 → TELE-WESTW 16:01
PROVIDERS: ADMIT Internal Medicine; ATTEND Family Medicine
PROC: 30233R1 Transfusion of Nonautologous Platelets into Peripheral Vein, Percutaneous Approach (ICD-10-PCS; principal; 2019-04-28)
PROC: 30233N1 Transfusion of Nonautologous Red Blood Cells into Peripheral Vein, Percutaneous Approach (ICD-10-PCS; 2019-04-28)
DX: A41.1 Sepsis due to other specified staphylococcus (principal); E43 Unspecified severe protein-calorie malnutrition; C92.01 Acute myeloblastic leukemia, in remission; D61.818 Other pancytopenia; J44.9 Chronic obstructive pulmonary disease, unspecified; E11.9 Type 2 diabetes mellitus without complications; I11.0 Hypertensive heart disease with heart failure; G89.29 Other chronic pain; M54.5 Low back pain; I50.9 Heart failure, unspecified; Z80.0 Family history of malignant neoplasm of digestive organs; Z82.5 Family history of asthma and other chronic lower respiratory diseases; Z86.008 Personal history of in-situ neoplasm of other site
CPT/HCPCS: 36415; 36430; 71045; 74177; 80053; 80202; 81001; 82962; 83036; 83605; 84484; 85007; 85025; 85027; 85610; 85730; 86850; 86900; 86901; 86920; 87040; 87077; 87081; 87186; 93005; G0378; J0696

== ENCOUNTER 2019-05-11 17:05 | Inpatient (IN) | payer OTHER ==
[~2019-05-11] VITALS: Ht 160 cm; Wt 44.8 kg
[2019-05-11 18:10] LABS: Basophils # (auto) 0 uL; Eosinophils # (auto) 0 uL; Neutrophils # (auto) 0.1 uL
[2019-05-11 18:11] LABS: Hematocrit 26.2 % (41.0-53.0); Hemoglobin 8.5 g/dL (13.5-17.5); Lymphocytes # (auto) 0.5 uL; Mean Corpuscular Hgb Conc. 32.5 g/dL (32.0-36.0); Mean Corpuscular Volume 89.2 fL (80.0-100.0); Monocytes # (auto) 0 uL; Monocytes % (auto) 6.5 % (0.0-12.0); Neutrophils % (auto) 12.3 % (37.0-80.0); Red Blood Cells 2.94 10^6/uL (4.5-5.90)
[2019-05-11 18:12] LABS: Lymphocytes % (auto) 81.2 % (10.0-50.0); Nucleated Red Blood Cells % 4.9 %
[2019-05-11 18:13] LABS: Red Cell Distribution Width 20.8 % (11.8-14.3)
[2019-05-11 18:16] LABS: Platelet Count (auto) 9 10^3/uL (140-450); White Blood Cell 0.6 10^3/uL (4.4-10.8)
[2019-05-11] MEDS ORDERED: NITROGLYCERIN 0.4 MG SL TAB SL PRN (19:45)
[2019-05-11] MEDS ORDERED: MORPHINE SULF INJ 2 MG/ML SYRINGE 1ML IV PRN ×2 (19:45→21:15)
[2019-05-11 20:06] VITALS: BP 124/59
[2019-05-11 20:32] VITALS: BP 123/55
[2019-05-11] MEDS ORDERED: HYDROcodone-ACET 5/325MG TAB PO PRN (21:00)
[2019-05-11] MEDS ORDERED: ACETAMINOPHEN 325 MG TAB PO PRN (21:00)
[2019-05-11] MEDS ORDERED: ONDANSETRON HCL 4 MG/2 ML VIAL IV PRN (21:00)
[2019-05-11] MEDS ORDERED: TEMAZEPAM 15 MG CAP PO PRN (21:00)
[2019-05-11] MEDS ORDERED: MORPHINE SULFATE 4 MG/ML SYR/VIAL IV PRN (21:00)
[2019-05-11 22:00] VITALS: BP 151/66
--- NOTE | 2019-05-11 22:00 | NUR ---
Admitted to room 238, reverse iso precautions. Alert and oriented x4. Came with double lumen PIC to NADINE, both lumens flushed, patent and locked. I had this patient on his last visit and he was much weaker at that time. He seems to be in better spirits and much stronger and independent. Ambulates to the restroom. Denies dizziness. Oriented to room and policies. Phone given to patient due to room not having one. skin clear. Bed low and call light within reach
[2019-05-11 22:25] LABS: BUN/Creatinine Ratio 36.5; Calcium 8.5 mg/dL (8.5-10.1); Potassium 4.1 mmol/L (3.5-5.1)
[2019-05-11 22:29] LABS: Bilirubin, Total 0.6 mg/dL (0.2-1.0); Total Protein 6.5 g/dL (6.4-8.2)
[2019-05-11 22:33] LABS: Urine Bacteria NONE SEEN /hpf (None Seen); Urine Blood Negative /uL (Negative); Urine Specific Gravity 1.012 (1.001-1.035); Urine WBC <1 /hpf (0 - 3)
--- NOTE | 2019-05-11 22:35 | NUR ---
Paged hospitalist: patient does not like morphine, takes percocet 5/325 at home q6 and wants/needs that continued. Here for Leukemia.
--- NOTE | 2019-05-11 22:53 | NUR ---
Paged hospitalist: Patient stating he can not take norco or morphine that it effects his stomach. Percocet is the only thing he can take. Hes been on it for over a year
[2019-05-11] MEDS: OXYCODONE W/ ACETAMINOPHEN 5/325MG TABLET PO PRN (23:08)
[2019-05-12] VITALS (13 sets, daily range): BP systolic 101–139; BP diastolic 41–64
[2019-05-12] MEDS: OXYCODONE W/ ACETAMINOPHEN 5/325MG TABLET PO PRN ×2 (04:45→10:53)
[2019-05-12] MEDS ORDERED: LACT10PA2 PO (05:33)
--- NOTE | 2019-05-12 06:43 | NUR ---
Called and spoke with hospitalist. Received diet orders. Carried out. Snack given to patient per his request. Collected blood for am labs via PICC using aseptic technique. Replaced extension set
[2019-05-12 07:01] LABS: INR 1.07 (0.9-1.15); Partial Thromboplastin Time 33.4 sec (23.64-32.05)
[2019-05-12 07:09] LABS: Basophils # (auto) 0 uL; Eosinophils # (auto) 0 uL; Lymphocytes # (auto) 0.5 uL; Mean Corpuscular Volume 87.7 fL (80.0-100.0); Monocytes # (auto) 0 uL; Neutrophils # (auto) 0.1 uL; Platelet Count (auto) 23 10^3/uL (140-450)
[2019-05-12 07:12] LABS: Albumin 2.7 g/dL (3.4-5.0); Calcium 8.1 mg/dL (8.5-10.1); Magnesium 2.3 mg/dL (1.6-2.6); Potassium 3.9 mmol/L (3.5-5.1)
[2019-05-12 07:15] LABS: Eosinophils % (auto) 0.2 % (0.0-7.0); Hematocrit 22.4 % (41.0-53.0); Hemoglobin 7.5 g/dL (13.5-17.5); Mean Corpuscular Hemoglobin 29.2 pg (28.0-32.0); Mean Corpuscular Hgb Conc. 33.2 g/dL (32.0-36.0); Monocytes % (auto) 3.6 % (0.0-12.0); Neutrophils % (auto) 9.1 % (37.0-80.0); Red Blood Cells 2.56 10^6/uL (4.5-5.90)
[2019-05-12 07:16] LABS: BUN/Creatinine Ratio 31.5; Bilirubin, Total 0.6 mg/dL (0.2-1.0); Phosphorus 3.8 mg/dL (2.5-4.90); Total Protein 5.9 g/dL (6.4-8.2)
[2019-05-12 07:37] LABS: Lymphocytes % (auto) 87.1 % (10.0-50.0); Nucleated Red Blood Cells % 5.1 %; Red Cell Distribution Width 21.2 % (11.8-14.3)
[2019-05-12 07:41] LABS: White Blood Cell 0.6 10^3/uL (4.4-10.8)
--- NOTE | 2019-05-12 08:00 | NUR ---
Received pt resting in bed, call light within reach, no pain or distress noted at this time, will continue to monitor pt.
[2019-05-12] MEDS ORDERED: amLODIPine BESYLATE 5 MG TAB PO SCH (10:00)
[2019-05-12] MEDS ORDERED: FUROSEMIDE 20 MG TAB PO SCH (10:00)
[2019-05-12] MEDS ORDERED: ALLOPURINOL 300 MG TAB PO SCH (10:00)
[2019-05-12] MEDS ORDERED: PANTOPRAZOLE 40 MG TAB PO SCH (10:00)
[2019-05-12] MEDS ORDERED: GABAPENTIN 300 MG CAP PO SCH (10:00)
--- NOTE | 2019-05-12 10:00 | NUR ---
Dr. Davis at bed side to see pt, doctor discussed the plan of care with pt.
[2019-05-12] MEDS ORDERED: FILGRASTIM(TBO) 480 MCG/0.8 ML SYRG SC ONE (10:15)
[2019-05-12] MEDS ORDERED: ACETAMINOPHEN 500 MG TAB PO ONE (10:15)
--- NOTE | 2019-05-12 12:15 | NUR ---
Dr. Davis informed that pt does not want to take the Granix medication, pt wants to talk to doctor prior to having the medication given. Doctor at bed side to talk to pt. Pt agreed to take the Granix.
--- NOTE | 2019-05-12 14:40 | NUR ---
DR. MARIE /ONCO AT UNIT TO SEE PT, PER DOCTOR, PT CAN BE D/C AFTER THE PRBC AND PLATELETS TRANSFUSION, TO D/C THE GARNIX, AND TO FOLLOW UP AT THE FACILITY SCHEDULE.
[2019-05-12 15:20] LABS: Cholesterol 112 mg/dL (< 200); Triglycerides 73 mg/dL (< 150)
[2019-05-12 15:24] LABS: HDL Cholesterol 45 mg/dL (40-59); LDL Cholesterol 58 mg/dL (< 100)
--- NOTE | 2019-05-12 15:32 | NUR ---
Discharge planning per SS consult, patient has orders to resume home health. Encountered patient to inquire of previous home health, he advised of [facility]. Patient stated it was okay to return to [facility]. Referral faxed to [facility], placed a follow up call, spoke with Daisy and was advised that they will resume services with this patient and start of care will be within 24-48 hours upon discharge. Addendum: 05/12/19 at 1536 by ANGELES PUCKETT Amended: Links added.
[2019-05-12] MEDS ORDERED: INFLUENZA QUAD 2019-2020 0.5ml SYRG IM ONE (18:30)
--- NOTE | 2019-05-12 18:50 | NUR ---
Discharge instructions given as ordered. Encourage to follow up with PMD, Dr. Davis on 05/18/2019 at 3:00 pm,as instructed. All questions and concerns addressed. Patient verbalized understanding. Medication reconciliation form completed and copy given to patient. No home medications held in Pharmacy, and needed vaccines given. Pt will be going home with IV, PICC line, pt came in to the hospital with PICC line from home. Telemetry unit returned to ICU. Taxi call at [phone], awaiting for picker and sorter load and unload.
[2019-05-13] MEDS ORDERED: FILGRASTIM(TBO) 480 MCG/0.8 ML SYRG SC SCH (10:00)
== END 2019-05-12 20:35 | disposition home health service (06) | DRG 835 ==
LOC: EDUNIT# 17:05 → ER 17:05 → EDBD 17:05 → TELE 17:06 → TELE-EAST 22:00
PROVIDERS: ADMIT Hospitalist; ATTEND Internal Medicine
PROC: 30233R1 Transfusion of Nonautologous Platelets into Peripheral Vein, Percutaneous Approach (ICD-10-PCS; principal; 2019-05-11)
PROC: 30233N1 Transfusion of Nonautologous Red Blood Cells into Peripheral Vein, Percutaneous Approach (ICD-10-PCS; 2019-05-12)
DX: C92.00 Acute myeloblastic leukemia, not having achieved remission (principal); D61.818 Other pancytopenia; E44.0 Moderate protein-calorie malnutrition; E11.9 Type 2 diabetes mellitus without complications; J44.9 Chronic obstructive pulmonary disease, unspecified; I10 Essential (primary) hypertension; D69.6 Thrombocytopenia, unspecified; Z79.84 Long term (current) use of oral hypoglycemic drugs; Z79.899 Other long term (current) drug therapy; Z90.89 Acquired absence of other organs; Z82.5 Family history of asthma and other chronic lower respiratory diseases; Z80.8 Family history of malignant neoplasm of other organs or systems; Z81.8 Family history of other mental and behavioral disorders; Z23 Encounter for immunization
CPT/HCPCS: 36415; 80053; 80061; 81001; 83735; 84100; 85025; 85610; 85730; 86850; 86900; 86901; 86920; 94761; G0378; J1447